=== PATIENT | female | born 1960 | race Caucasian/White ===

== ENCOUNTER 2023-07-08 13:25 | Emergency (ER) | payer MEDICAID ==
[~2023-07-08] VITALS: Ht 154.9 cm; Wt 72.0 kg
[2023-07-08 17:09] VITALS: BP 212/84; PULSE 71; RESP 16; TEMP 98.1; O2SAT 100
== END 2023-07-08 17:10 | disposition home or self-care (01) ==
LOC: ER 13:26
DX: L03.211 Cellulitis of face (principal)
CPT/HCPCS: 70450; 99284

== ENCOUNTER 2023-11-20 19:19 | Emergency (ER) | payer MEDICARE, MEDICAID ==
[~2023-11-20] VITALS: Ht 154.9 cm; Wt 74.0 kg
[2023-11-20 21:58] LABS: BASOPHILS # (AUTO) 0.1 X10'3 (0-0.2); BASOPHILS % (AUTO) 0.6 % (0-1); EOSINOPHILS # (AUTO) 0.1 X10'3 (0-0.9); EOSINOPHILS % (AUTO) 0.7 % (0-6); HEMATOCRIT 38.1 % (35.0-45.0); HEMOGLOBIN 12.6 g/dl (12.0-16.0); LYMPHOCYTES # (AUTO) 1.6 X10'3 (1.1-4.8); LYMPHOCYTES % (AUTO) 18.3 % (21-51); MEAN PLATELET VOLUME 9.1 FL (7.4-10.4); MONOCYTES # (AUTO) 0.7 X10'3 (0-0.9); MONOCYTES % (AUTO) 8.3 % (2-12); NEUTROPHILS # (AUTO) 6.4 X10'3 (1.8-7.7); NEUTROPHILS % (AUTO) 72.1 % (42-75); PLATELET COUNT 231 X10'3 (140-440); RED BLOOD COUNT 4.49 X10'6 (4.20-5.60); RED CELL DISTRIBUTION WIDTH 13.6 % (11.5-14.5); WHITE BLOOD COUNT 8.9 X10'3 (4.5-11.0)
[2023-11-20 22:10] LABS: ALANINE AMINOTRANSFERASE 23 U/L (12-78); ALBUMIN 3.9 G/DL (3.4-5.0); ALKALINE PHOSPHATASE 82 IU/L (46-116); ANION GAP 7 (8-16); ASPARTATE AMINO TRANSFERASE 20 U/L (10-37); BLOOD UREA NITROGEN 13 MG/DL (7-18); BUN/CREATININE RATIO 16.3 (10.0-20.0); CALCIUM 8.9 MG/DL (8.5-10.1); CHLORIDE 99 MMOL/L (99-107); GLUCOSE 107 MG/DL (70-104); LIPASE 31 U/L (16-77); SODIUM 133 MMOL/L (135-145); TOTAL CARBON DIOXIDE 26.8 MMOL/L (24-32); eCRCL 53 ML/MIN; eGFR 72 ML/MIN
[2023-11-20 22:41] LABS: BILIRUBIN,URINE NEGATIVE (Neg); CLARITY,URINE CLEAR (Clear); COLOR,URINE YELLOW (Yellow); GLUCOSE, URINE NEGATIVE (Neg); KETONES,URINE 15 mg/dl (Neg); LEUKOCYTE ESTERASE ,URINE MODERATE (Neg); NITRITES, URINE NEGATIVE (Neg); OCCULT BLOOD,URINE SMALL (Neg); PROTEIN,URINE NEGATIVE (Neg); UROBILINOGEN,URINE 0.2 E.U/dL (0.2-1.0)
[2023-11-20 22:54] LABS: UA COLLECTION TYPE CLN CATCH MIDSTREAM
[2023-11-20 22:58] LABS: BACTERIA,URINE FEW /HPF (Neg); SQUAMOUS EPITHELIAL CELL,UR MODERATE /LPF (FEW); TRANSITIONAL EPI CELLS,URINE FEW /HPF
[2023-11-20 22:59] LABS: RBC,URINE 0-2 /HPF (0-2)
[2023-11-21] MEDS ORDERED: LEVO-65 PO (01:29)
[2023-11-21] MEDS: levoFLOXACIN 750MG TABLET PO ONE (01:48)
[2023-11-21 02:20] VITALS: BP 148/75; PULSE 79; RESP 14; TEMP 98.8; O2SAT 98
== END 2023-11-21 02:23 | disposition home or self-care (01) ==
LOC: ER 19:20
DX: J18.9 Pneumonia, unspecified organism (principal); R10.11 Right upper quadrant pain
CPT/HCPCS: 36415; 74176; 76700; 80053; 81001; 83690; 85025; 87088; 99284

== ENCOUNTER 2023-12-24 20:17 | Emergency (ER) | payer MEDICARE, MEDICAID ==
[~2023-12-24] VITALS: Ht 154.9 cm; Wt 71.4 kg
[2023-12-24] MEDS ORDERED: DEC4T PO (21:43)
[2023-12-24] MEDS ORDERED: HYDR-3686 PO (21:43)
[2023-12-24] MEDS: hydrOXYzine 25 MG tablet PO ONE (21:51)
[2023-12-24] MEDS: dexamethasone sod phosphate 10mg/ml inj PO STA (21:51)
[2023-12-24 21:53] VITALS: BP 136/88; PULSE 77; RESP 18; TEMP 98.5; O2SAT 99
== END 2023-12-24 21:55 | disposition home or self-care (01) ==
LOC: ER 20:17
DX: T63.461A Toxic effect of venom of wasps, accidental (unintentional), initial encounter (principal); I77.6 Arteritis, unspecified; Y92.89 Other specified places as the place of occurrence of the external cause; Z79.899 Other long term (current) drug therapy
CPT/HCPCS: 99283; J1100; Q0177

== ENCOUNTER 2024-09-12 12:44 | Emergency (ER) | payer MEDICARE, MEDICAID ==
[~2024-09-12] VITALS: Ht 157.5 cm; Wt 72.3 kg
[2024-09-12 12:52] VITALS: BP 178/73; PULSE 91; RESP 18; O2SAT 96
[2024-09-12] MEDS ORDERED: AZIT250T2 PO (13:38)
[2024-09-12] MEDS ORDERED: AMOX-580 PO (13:38)
[2024-09-12 13:48] VITALS: TEMP 98.6
== END 2024-09-12 13:50 | disposition home or self-care (01) ==
LOC: ER 12:45
DX: J18.9 Pneumonia, unspecified organism (principal)
CPT/HCPCS: 71046; 99283